=== PATIENT | female | born 1960 | race Caucasian/White ===

== ENCOUNTER 2016-10-24 10:50 | Emergency (ER) | payer OTHER ==
[~2016-10-24] VITALS: Ht 157.5 cm; Wt 84.5 kg
[2016-10-24 10:54] VITALS: Ht 157.5 cm; Wt 84.5 kg
[2016-10-24] MEDS ORDERED: SOD CHLORIDE 0.9% 500 ML IV STA (10:58)
[2016-10-24 11:12] LABS: ADD SCAN DIFF NO
[2016-10-24 11:14] LABS: BASOPHIL # 0.1 10^3/ul (0.0-0.1); BASOPHILS % 0.6 % (0.0-2.0); EOSINOPHILS # 0.7 10^3/ul (0.0-0.5); EOSINOPHILS % 5.6 % (0.0-7.0); HEMATOCRIT 41.5 % (37.0-47.0); HEMOGLOBIN 13.6 g/dl (12.0-16.0); LYMPHOCYTES # 4.5 10^3/ul (0.8-2.9); LYMPHOCYTES % 35.8 % (15.0-51.0); MEAN CORPUSCULAR HEMOGLOBIN 28.3 pg (29.0-33.0); MEAN CORPUSCULAR HGB CONC 32.8 g/dl (32.0-37.0); MEAN CORPUSCULAR VOLUME 86.5 fl (82.0-101.0); MEAN PLATELET VOLUME 9.4 fl (7.4-10.4); MONOCYTE # 0.7 10^3/ul (0.3-0.9); MONOCYTES % 5.7 % (0.0-11.0); NEUTROPHIL # 6.5 10^3/ul (1.6-7.5); PLATELET COUNT 341 10^3/UL (140-415); WHITE BLOOD COUNT 12.4 10^3/ul (4.8-10.8)
--- NOTE | 2016-10-24 11:20 | RADRPT ---
PROCEDURE: XR Chest. CLINICAL INDICATION: Syncope TECHNIQUE: Single frontal chest x-ray. COMPARISON: None. FINDINGS: No acute infiltrate, pleural effusion or pneumothorax is identified. Cardiomediastinal silhouette i s within normal limits. The osseous structures are unremarkable. IMPRESSION: 1. No evidence of acute cardiopulmonary process. RPTAT: QQ .Gabriel Woodson MD, MD Date Time Electronically viewed and signed by .Gabriel Woodson MD, on 10/24/2016 11:20 .R/
[2016-10-24 11:28] LABS: CHLORIDE 101 mmol/L (97-110); SODIUM 141 mmol/L (135-144)
[2016-10-24 11:31] LABS: ANION GAP 17 (8-16); CARBON DIOXIDE 27 mmol/L (21-31); CREATININE 0.59 mg/dl (0.44-1.00)
[2016-10-24 11:32] LABS: BLOOD UREA NITROGEN 13 mg/dl (7-20); CALCIUM 9.3 mg/dl (8.4-10.2); GLUCOSE 122 mg/dl (70-220)
[2016-10-24 11:53] LABS: ADD UMIC YES; URINE BILIRUBIN (Dip) NEGATIVE (NEGATIVE); URINE BLOOD (Dip) NEGATIVE (NEGATIVE); URINE COLOR LT. YELLOW (YELLOW); URINE GLUCOSE (Dip) NEGATIVE (NEGATIVE); URINE KETONES (Dip) NEGATIVE (NEGATIVE); URINE LEUKOCYTE ESTERASE (Dip) 1+ (NEGATIVE); URINE NITRITE (Dip) NEGATIVE (NEGATIVE); URINE TOTAL PROTEIN (Dip) NEGATIVE (NEGATIVE); URINE UROBILINOGEN (Dip) 0.2 E.U./dL (0.1-1.0)
--- NOTE | 2016-10-24 11:53 | ERD ---
ER Documentation Chief Complaint Date/Time DATE: 10/24/16 TIME: 11:46 Chief Complaint dizziness x 7 days HPI 56-year-old female with no significant past medical history presenting with intermittent lightheadedness for the past week. She has had no episodes of her vision blacking out or fainting. She has had mild associated nausea without vomiting. She feels occasionally some tingling in her feet and her face. She denies any associated fever, chills, headache, vision disturbance, difficulty urinating, dysuria, abdominal pain, chest pain, shortness of breath. ROS All systems reviewed and are negative except as per history of present illness. PMhx/Soc Medical and Surgical Hx: pt denies Medical Hx, pt denies Surgical Hx Hx Alcohol Use: No Hx Substance Use: No Hx Tobacco Use: No Smoking Status: Never smoker FmHx Family History: No diabetes Physical Exam Vitals Vital Signs Date Time Temp Pulse Resp B/P Pulse Ox O2 Delivery O2 Flow Rate FiO2 10/24/16 11:28 63 133/89 74 130/91 72 126/87 10/24/16 10:54 98.0 69 18 159/79 98 Physical Exam Const: No apparent distress, nontoxic Head: Atraumatic Eyes: Normal Conjunctiva, PERRLA, EOMI, no nystagmus ENT: Normal External Ears, Nose and Mouth. Neck: Full range of motion. No meningismus. Resp: Clear to auscultation bilaterally Cardio: Regular rate and rhythm, no murmurs Abd: Soft, non tender, non distended. Normal bowel sounds Skin: No petechiae or rashes Back: No midline or flank tenderness Ext: No cyanosis, or edema Neur: Awake and alert and oriented 3, cranial nerves intact, strength and sensations intact in all 4 extremities, gait stable Psych: Normal Mood and Affect Result Diagram: 10/24/16 1107 10/24/16 1107 Results 24 hrs Laboratory Tests Test 10/24/16 10:00 10/24/16 11:07 Urine Color LT. YELLOW Urine Clarity CLEAR Urine pH 5.0 Urine Specific Amasa 1.015 Urine Ketones NEGATIVE Urine Nitrite NEGATIVE Urine Bilirubin NEGATIVE Urine Urobilinogen 0.2 E.U./dL Urine Leukocyte Esterase 1+ Urine Microscopic RBC NONE SEEN/HPF Urine Microscopic WBC 0-2/HPF Urine Squamous Epithelial Cells FEW Urine Hemoglobin NEGATIVE Urine Glucose NEGATIVE% Urine Total Protein NEGATIVE White Blood Count 12.410^3/ul Red Blood Count 4.8010^6/ul Hemoglobin 13.6g/dl Hematocrit 41.5% Mean Corpuscular Volume 86.5fl Mean Corpuscular Hemoglobin 28.3pg Mean Corpuscular Hemoglobin Concent 32.8g/dl Red Cell Distribution Width 13.0% Platelet Count 53490^3/UL Mean Platelet Volume 9.4fl Neutrophils % 52.0% Lymphocytes % 35.8% Monocytes % 5.7% Eosinophils % 5.6% Basophils % 0.6% Nucleated Red Blood Cells % 0.0/100WBC Neutrophils # 6.510^3/ul Lymphocytes # 4.510^3/ul Monocytes # 0.710^3/ul Eosinophils # 0.710^3/ul Basophils # 0.110^3/ul Nucleated Red Blood Cells # 0.010^3/ul Sodium Level 141mmol/L Potassium Level 4.0mmol/L Chloride Level 101mmol/L Carbon Dioxide Level 27mmol/L Anion Gap 17 Blood Urea Nitrogen 13mg/dl Creatinine 0.59mg/dl Glucose Level 122mg/dl Calcium Level 9.3mg/dl Troponin I < 0.012ng/ml Current Medications Medications (Trade) Dose Ordered Sig/Jose Route PRN Reason Start Time Stop Time Status Last Admin Dose Admin Sodium Chloride (NS) 500 ml @ 500 mls/hr Q1H STAT IV 10/24/16 10:58 10/24/16 11:57 DC 10/24/16 11:23 Procedures/MDM EKG: Rate/Rhythm: Normal Sinus Rhythm QRS, ST, T-waves: No changes consistent w/ acute ischemia Impression: No evidence of ischemia or arrhythmia CT head: No acute abnormalities per radiology Chest x-ray: No acute abnormalities Labs: CBC shows mild leukocytosis without left shift. BMP, troponin within normal limits. Urinalysis with 1+ leukocytes but no WBCs Patient is presenting with complaints of dizziness for 1 week. Her vitals are stable and she is afebrile. She is neurologically intact on exam. I have a low suspicion for sepsis, acute coronary syndrome, arrhythmia, acute stroke, intracranial hemorrhage, meningitis, encephalitis. I feel the patient is stable for discharge at this time. I gave her a list of community clinics where she can follow-up on Wednesday. Return precautions were discussed. She was urged to return for any worsening symptoms. Exchange Architect was used to give patient discharge instructions. Patient states she clearly understands. Departure Diagnosis: Primary Impression: Intermittent lightheadedness Condition: Stable ADAM RAPHAEL MD October 24, 2016 11:53
--- NOTE | 2016-10-24 11:54 | RADRPT ---
PROCEDURE: CT head CLINICAL INDICATION: Vertigo and dizziness TECHNIQUE: Contiguous 2.5 mm axial images were obtained from the vertex to the skull base. No int ravenous contrast was administered. The calculated dose length product (DLP) = 630.20 mGy-cm. The CTDlvol = 43.77 mGy. One or more of the following dose reduction techniques were used: Automated e xposure control, adjustment of the mA and or KV according to patient size, or use of iterative recon struction technique. COMPARISON: None FINDINGS: There is no acute intracranial hemorrhage or acute territorial infarct. No mass or mass effect is s een on this noncontrast study. There is punctate bilateral cortical calcifications without associat ed edema. 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 The ventricles and cisterns are normal i n size and configuration. Pompa-white matter differentiation is within normal limits. Visualized pa ranasal sinuses are normally aerated. The bony calvarium is unremarkable. IMPRESSION: 1. No acute intracranial hemorrhage or acute territorial infarct. 2. 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
[2016-10-24 12:06] LABS: TROPONIN-I < 0.012 ng/ml (0.00-0.12)
[2016-10-24 12:20] LABS: SQUAMOUS EPITHELIAL CELL,UR FEW; URINE RBCS NONE SEEN /HPF (0)
[2016-10-24 12:24] VITALS: BP 120/87; PULSE 89; RESP 17
== END 2016-10-24 12:47 | disposition home or self-care (01) ==
LOC: E/R 10:50
DX: R42 Dizziness and giddiness (principal)
CPT/HCPCS: 36415; 70450; 71010; 80048; 81001; 84484; 85025; 93005; J7040; Z7502; 81003

== ENCOUNTER 2017-01-15 12:03 | Emergency (ER) | payer OTHER ==
[~2017-01-15] VITALS: Ht 165.1 cm; Wt 72.7 kg
[2017-01-15 12:39] VITALS: Ht 165.1 cm; Wt 72.7 kg
[2017-01-15] MEDS ORDERED: IBUP-1542 PO (13:02)
[2017-01-15] MEDS ORDERED: CIPR7.5D4 RIGHT EAR (13:02)
--- NOTE | 2017-01-15 13:21 | ERD ---
ER Documentation Chief Complaint Date/Time DATE: 01/15/17 TIME: 13:17 Chief Complaint RIGHT EAR PAIN HPI Patient is a 56-year-old female who presents to the emergency department for concerns of right ear pain 3 days. Patient states she has had some active yellow drainage from her right ear. Patient denies any fevers or chills. Patient denies any bleeding. Patient does report using Q-tips. Patient denies any recent water activity. Patient denies any cough, rhinorrhea, throat pain, nausea, vomiting, abdominal pain, chest pain, shortness breath or LOC. No recent travel. No sick contacts. ROS All systems reviewed and are negative except as per history of present illness. Medications Home Meds Active Scripts Ciprofloxacin Hcl/Dexameth (Ciprodex Otic Suspension) 7.5 Ml Drops.susp, 4 DROP RIGHT EAR BID for 7 Days, #1 BOTTLE Prov:BOY MORATAYA PA-C 01/15/17 Ibuprofen* (Motrin*) 600 Mg Tab, 600 MG PO Q6, #20 TAB Prov:BOY MORATAYA PA-C 01/15/17 PMhx/Soc History of Surgery: No Anesthesia Reaction: No Hx Neurological Disorder: No Hx Respiratory Disorders: No Hx Cardiac Disorders: No Hx Psychiatric Problems: No Hx Miscellaneous Medical Probl: No Hx Alcohol Use: No Hx Substance Use: No Hx Tobacco Use: No Smoking Status: Never smoker Physical Exam Vitals Vital Signs Date Time Temp Pulse Resp B/P Pulse Ox O2 Delivery O2 Flow Rate FiO2 01/15/17 12:39 98.5 78 18 136/68 98 Physical Exam GENERAL: Well-developed, well-nourished female. Appears in no acute distress. Speaking in full sentences. HEAD: Normocephalic, atraumatic. No deformities or ecchymosis. EYE: Pupils equal, round, and reactive to light. EOMs intact. No conjunctival erythema. No eye discharge. ENT: External ear without any masses or tenderness. Right auditory canal appears swollen with active drainage noted in the external aspect of the canal. R and L TM appears nonerythematous, nonbulging. Nasal mucosa pink with no discharge. Oropharynx is pink without any tonsillar erythema or exudates. No uvula deviation. No kissing tonsils. Nontender palpation of bilateral mastoid processes. No trismus. NECK: Supple. No meningismus. Normal ROM of the neck. LUNG: Clear to auscultation bilaterally. No rhonchi, wheezing, rales or coarse breath sounds. HEART: Regular rate and rhythm. No murmurs, rubs or gallops. BACK: No midline tenderness. EXTREMITES: Equal pulses bilaterally. No peripheral clubbing, cyanosis or edema. No unilateral leg swelling. NEUROLOGIC: Alert and oriented to person, place and time. Moving all four extremities. 5/5 strength in all extremities. Normal speech. Steady gait. SKIN: Normal color. Warm and dry. No rashes or lesions. Procedures/MDM MEDICAL DECISION MAKING: This is a 56-year-old female presents with right ear pain 3 days vital signs were reviewed. Patient was afebrile. Patient was not hypoxic. Given these findings, the patients presentation is most consistent with otitis externa. I have a much lower clinical suspicion for acute otitis media, tympanic membrane perforation, mastoiditis, otic barotrauma, TMJ dysfunction, room impaction, strep pharyngitis, meningitis. PRESCRIPTIONS: Ciprodex DISCHARGE: At this time, patient is stable for discharge and outpatient management. I have instructed the patient to follow-up with his/her primary care physician in 1-2 days. ENT referral information given. I have discussed with the patient the possibility of needing to see a specialist for further workup and diagnostic studies if the pain persists. I have instructed the patient to promptly return to the ER at any time for any new or worsening symptoms including increased pain , fever, swelling, discharge or hearing loss. The patient and/or family expressed understanding of and agreement with this plan. All questions were answered. Home care instructions were provided. Departure Diagnosis: Primary Impression: External otitis of right ear Otitis externa type: unspecified type Chronicity: unspecified Qualified Code: H60.91 - Otitis externa of right ear, unspecified chronicity, unspecified type Condition: Stable Patient Instructions: External Ear Infection (Adult) Referrals: FITO MAHONEY MD, BRUCE SOLIS,KENYETTA SEQUEIRA,SANTANA MCGOVERN,JEANCARLOS BOLANOS,DEB WINKLER,JOHNSON BURTON,MIRNA POWELL,MASOOD [facility] YOU HAVE RECEIVED A MEDICAL SCREENING EXAM AND THE RESULTS INDICATE THAT YOU DO NOT HAVE A CONDITION THAT REQUIRES URGENT TREATMENT IN THE EMERGENCY DEPARTMENT. FURTHER EVALUATION AND TREATMENT OF YOUR CONDITION CAN WAIT UNTIL YOU ARE SEEN IN YOUR DOCTORS OFFICE WITHIN THE NEXT 1-2 DAYS. IT IS YOUR RESPONSIBILITY TO MAKE AN APPOINTMENT FOR FOLOW-UP CARE. IF YOU HAVE A PRIMARY DOCTOR --you should call your primary doctor and schedule an appointment IF YOU DO NOT HAVE A PRIMARY DOCTOR YOU CAN CALL OUR PHYSICIAN REFERRAL HOTLINE AT IF YOU CAN NOT AFFORD TO SEE A PHYSICIAN YOU CAN CHOSE FROM THE FOLLOWING [facility] [address] [facility] [address] [facility]. [facility] [address] [address] [facility] [address] [facility] [address] [facility]. [facility] [address] [facility]. [facility] YOU HAVE RECEIVED A MEDICAL SCREENING EXAM AND THE RESULTS INDICATE THAT YOU DO NOT HAVE A CONDITION THAT REQUIRES URGENT TREATMENT IN THE EMERGENCY DEPARTMENT. FURTHER EVALUATION AND TREATMENT OF YOUR CONDITION CAN WAIT UNTIL YOU ARE SEEN IN YOUR DOCTORS OFFICE WITHIN THE NEXT 1-2 DAYS. IT IS YOUR RESPONSIBILITY TO MAKE AN APPOINTMENT FOR FOLOW-UP CARE. IF YOU HAVE A PRIMARY DOCTOR --you should call your primary doctor and schedule and appointment IF YOU DO NOT HAVE A PRIMARY DOCTOR YOU CAN CALL OUR PHYSICIAN REFERRAL HOTLINE AT . IF YOU CAN NOT AFFORD TO SEE A PHYSICIAN YOU CAN CHOSE FROM THE FOLLOWING [facility] INSTITUTIONS: [facility] [address] [place] [address] [facility] [address] [place] [address] [facility] [address] [place] [address] Additional Instructions: Call your primary care doctor TOMORROW for an appointment during the next 1-2 days.See the doctor sooner or return here if your condition worsens before your appointment time. BOY MORATAYA PA-C Jan 15, 2017 13:21
== END 2017-01-15 13:39 | disposition home or self-care (01) ==
LOC: FTE 12:03
DX: H60.91 Unspecified otitis externa, right ear (principal)
CPT/HCPCS: 99283